=== PATIENT | female | born 1960 | race Caucasian/White ===

== ENCOUNTER → 2021-02-19 11:16 | Outpatient (BNVA) | payer MEDICAID, SELFPAY | PROVIDERS: PCP Nurse Practitioner Family; Visit Provider Internal Medicine | DX: M25.50 Pain in unspecified joint (principal); R76.8 Other specified abnormal immunological findings in serum; Z11.59 Encounter for screening for other viral diseases; Z11.1 Encounter for screening for respiratory tuberculosis; Z79.899 Other long term (current) drug therapy | CPT/HCPCS: 36415; 80053; 82550; 82784; 83516; 85025; 85651; 86140; 86160; 86200; 86480; 86704; 86803; 87340; 99204 ==

== ENCOUNTER → 2021-03-26 13:40 | Outpatient (BNVA) | payer MEDICAID, SELFPAY | PROVIDERS: PCP Nurse Practitioner Family; Visit Provider Internal Medicine | DX: R74.8 Abnormal levels of other serum enzymes (principal); R76.8 Other specified abnormal immunological findings in serum; M25.50 Pain in unspecified joint; Z77.22 Contact with and (suspected) exposure to environmental tobacco smoke (acute) (chronic); M06.9 Rheumatoid arthritis, unspecified | CPT/HCPCS: 99214 ==

== ENCOUNTER → 2021-06-06 10:55 | Outpatient (BNVA) | payer MEDICAID, SELFPAY | PROVIDERS: PCP Nurse Practitioner Family; Visit Provider Internal Medicine | DX: M25.50 Pain in unspecified joint (principal); R76.8 Other specified abnormal immunological findings in serum; E88.89 Other specified metabolic disorders; R74.8 Abnormal levels of other serum enzymes; Z79.899 Other long term (current) drug therapy | CPT/HCPCS: 99214 ==

== ENCOUNTER → 2021-09-05 09:11 | Outpatient (BNVA) | payer MEDICAID, SELFPAY | PROVIDERS: PCP Nurse Practitioner Family; Visit Provider Internal Medicine | DX: R76.8 Other specified abnormal immunological findings in serum (principal); M25.50 Pain in unspecified joint; R74.8 Abnormal levels of other serum enzymes; E88.89 Other specified metabolic disorders | CPT/HCPCS: 99214 ==

== ENCOUNTER → 2021-12-04 15:04 | Outpatient (BNVA) | payer MEDICAID, SELFPAY | PROVIDERS: PCP Nurse Practitioner Family; Visit Provider Internal Medicine | DX: M25.50 Pain in unspecified joint (principal); R76.8 Other specified abnormal immunological findings in serum; R74.8 Abnormal levels of other serum enzymes; E88.89 Other specified metabolic disorders | CPT/HCPCS: 99214 ==

== ENCOUNTER → 2022-06-10 14:58 | Outpatient (BNVA) | payer MEDICAID, SELFPAY | PROVIDERS: PCP Nurse Practitioner Family; Visit Provider Internal Medicine | DX: M25.50 Pain in unspecified joint (principal); R76.8 Other specified abnormal immunological findings in serum; Z79.899 Other long term (current) drug therapy; R74.8 Abnormal levels of other serum enzymes; E88.89 Other specified metabolic disorders | CPT/HCPCS: 99214 ==

== ENCOUNTER → 2022-07-21 15:21 | Outpatient (BNVA) | payer MEDICAID, SELFPAY | PROVIDERS: PCP Nurse Practitioner Family; Visit Provider Internal Medicine | DX: R76.8 Other specified abnormal immunological findings in serum (principal); R74.8 Abnormal levels of other serum enzymes; M25.50 Pain in unspecified joint; E88.89 Other specified metabolic disorders | CPT/HCPCS: 20600; 99213; J1030 ==

== ENCOUNTER → 2022-09-21 15:09 | Outpatient (BNVA) | payer MEDICAID, SELFPAY | PROVIDERS: PCP Nurse Practitioner Family; Visit Provider Internal Medicine | DX: R76.8 Other specified abnormal immunological findings in serum (principal); M25.50 Pain in unspecified joint; R74.8 Abnormal levels of other serum enzymes; E88.89 Other specified metabolic disorders | CPT/HCPCS: 99214 ==

== ENCOUNTER → 2022-12-24 14:32 | Outpatient (BNVA) | payer MEDICAID, SELFPAY | PROVIDERS: PCP Nurse Practitioner Family; Visit Provider Internal Medicine | DX: R74.8 Abnormal levels of other serum enzymes (principal); M25.50 Pain in unspecified joint; R76.8 Other specified abnormal immunological findings in serum; E88.89 Other specified metabolic disorders; M54.50 Low back pain, unspecified | CPT/HCPCS: 99214 ==

== ENCOUNTER → 2023-03-25 15:16 | Outpatient (BNVA) | payer MEDICAID, SELFPAY | PROVIDERS: PCP Nurse Practitioner Family; Visit Provider Internal Medicine | DX: M60.9 Myositis, unspecified (principal); M13.80 Other specified arthritis, unspecified site; M54.50 Low back pain, unspecified; M25.50 Pain in unspecified joint; R76.8 Other specified abnormal immunological findings in serum; M06.00 Rheumatoid arthritis without rheumatoid factor, unspecified site; R74.8 Abnormal levels of other serum enzymes; E88.89 Other specified metabolic disorders | CPT/HCPCS: 99214 ==